=== PATIENT | female | born 1990 | race Caucasian/White ===

== ENCOUNTER 2017-03-27 06:16 | Emergency (ER) | payer OTHER ==
[2017-03-27 07:41] LABS: BASOPHIL 0 % (0-2); EOSINOPHIL 2.5 % (0-5); HCT 41.6 % (37.0-47.0); HGB 14.6 g/dl (12.5-16.0); LYMPHOCYTE 23.3 % (15-48); MCH 31.8 pg (25.0-31.0); MCHC 35.1 g/dL (32.0-36.0); MCV 90.6 fL (78.0-100.0); MONOCYTE 6.3 % (0-12); MPV 11.2 fL (6.0-9.5); NEUTROPHIL 67.9 % (41-80); PLT 201 K/uL (150-400); RBC 4.59 M/uL (4.20-5.40); RDW 12.8 % (11.5-14.0); WBC 8.5 K/uL (4.0-10.5)
[2017-03-27 07:42] LABS: BILIRUBIN NEGATIVE (NEGATIVE); BLOOD NEGATIVE Ery/uL (NEGATIVE); CLARITY CLEAR (CLEAR); COLOR YELLOW (YELLOW); GLUCOSE (U) NORMAL (NORMAL); KETONE (U) NEGATIVE (NEGATIVE); LEUKOCYTES NEGATIVE Leu/uL (NEGATIVE); NITRITE NEGATIVE (NEGATIVE); PROTEIN NEGATIVE (NEGATIVE); SPECIFIC GRAVITY 1.025 (1.001-1.030); UROBILINOGEN 0.2 mg/dL (0.2-1.0)
[2017-03-27 07:58] LABS: CREATININE 0.6 mg/dL (0.5-1.0); POTASSIUM 3.9 mmol/L (3.5-5.1)
== END 2017-03-27 08:58 | disposition home or self-care (01) ==
LOC: FER 06:16
PROVIDERS: Emergency Medicine
DX: J98.01 Acute bronchospasm (principal); M94.0 Chondrocostal junction syndrome [Tietze]; E11.9 Type 2 diabetes mellitus without complications; F17.210 Nicotine dependence, cigarettes, uncomplicated; Z90.49 Acquired absence of other specified parts of digestive tract; Z98.51 Tubal ligation status; Z79.84 Long term (current) use of oral hypoglycemic drugs
CPT/HCPCS: 36415; 71020; 80048; 81003; 85025; 87804; 87899; 94640; J2930

== ENCOUNTER 2020-11-09 04:34 | Emergency (ER) | payer OTHER ==
[~2020-11-09 04:34] MED LIST: BACTRIM DS TAB1 EACH PO; FLOMAX 0.4 MG0.4 MG PO; NORCO 5-325 TA1 EACH PO
[2020-11-09 05:31] LABS: MONOSPOT (MONONUCLEOSIS) NEGATIVE (NEGATIVE)
[2020-11-09] MEDS ORDERED: AMOXICILLIN500 MG PO (05:51)
== END 2020-11-09 06:43 | disposition home or self-care (01) ==
LOC: FER 04:34
PROVIDERS: Emergency Medicine
DX: J02.0 Streptococcal pharyngitis (principal); F17.200 Nicotine dependence, unspecified, uncomplicated; Z20.822 Contact with and (suspected) exposure to COVID-19
CPT/HCPCS: 86308; 87880; 99284; J1885; J8540; U0002

== ENCOUNTER 2021-07-19 21:07 | Emergency (ER) | payer OTHER ==
[~2021-07-19 21:07] MED LIST changes: +AMOXICILLIN500 MG PO
[2021-07-19 21:39] LABS: BASOPHIL 0.3 % (0-2); EOSINOPHIL 1.8 % (0-5); HCT 39.4 % (37.0-47.0); HGB 13.4 g/dl (12.5-16.0); LYMPHOCYTE 22.3 % (15-48); MPV 11.8 fL (6.0-9.5); NEUTROPHIL 68.1 % (41-80); NRBC 0; PLT 183 K/uL (150-400); RBC 4.19 M/uL (4.20-5.40); RDW 13.2 % (11.5-14.0)
[2021-07-19 21:49] LABS: PROTHROMBIN TIME 12.6 SECONDS (11.8-13.4); PTT 27.3 SECONDS (24.4-34.7)
[2021-07-19 22:03] LABS: ALBUMIN 3.6 g/dL (3.4-5.0); BILIRUBIN - TOTAL 0.1 mg/dL (0.2-1.0); BUN/CREAT RATIO (CALC) 19.7 RATIO; CREATININE 0.61 mg/dL (0.51-0.95); GLOBULIN (CALCULATION) 3.2 g/dL; POTASSIUM 3.5 mmol/L (3.5-5.1); TOTAL PROTEIN 6.8 g/dL (6.4-8.2)
[2021-07-19 22:58] LABS: LACTIC ACID 0.9 mmol/L (0.4-1.9)
== END 2021-07-20 02:08 | disposition home or self-care (01) ==
LOC: FER 21:07
PROVIDERS: Emergency Medicine Emergency Medical Services
DX: G89.29 Other chronic pain (principal); R10.9 Unspecified abdominal pain; R07.89 Other chest pain; R06.02 Shortness of breath; R42 Dizziness and giddiness; F17.210 Nicotine dependence, cigarettes, uncomplicated; Z90.49 Acquired absence of other specified parts of digestive tract; Z90.710 Acquired absence of both cervix and uterus; Z79.899 Other long term (current) drug therapy
CPT/HCPCS: 36415; 71045; 71275; 80053; 83605; 83690; 84484; 85025; 85379; 85610; 85730; 87339; 93005; J1885; J2270; J2405; J7030; Q9967

== ENCOUNTER 2021-07-21 21:12 | Emergency (ER) | payer OTHER ==
[2021-07-21 21:41] LABS: BASOPHIL 0.2 % (0-2); EOSINOPHIL 1.2 % (0-5); HCT 39.1 % (37.0-47.0); HGB 13.3 g/dl (12.5-16.0); LYMPHOCYTE 15.2 % (15-48); MCH 31.8 pg (25.0-31.0); MCV 93.5 fL (78.0-100.0); MONOCYTE 4.4 % (0-12); MPV 11.5 fL (6.0-9.5); NEUTROPHIL 78.7 % (41-80); NRBC 0; PLT 189 K/uL (150-400); RBC 4.18 M/uL (4.20-5.40); RDW 12.8 % (11.5-14.0)
[2021-07-21 21:52] LABS: PTT 28.9 SECONDS (24.4-34.7)
[2021-07-21 21:59] LABS: INR 1.02 (0.9-1.2); PROTHROMBIN TIME 12.8 SECONDS (11.8-13.4)
[2021-07-21 22:01] LABS: ALBUMIN 3.8 g/dL (3.4-5.0); BILIRUBIN - TOTAL 0.4 mg/dL (0.2-1.0); CREATININE 0.61 mg/dL (0.51-0.95); GLOBULIN (CALCULATION) 2.6 g/dL; TOTAL PROTEIN 6.4 g/dL (6.4-8.2)
[2021-07-21 23:02] LABS: CORONAVIRUS 2019 SARS-COV-2 NEGATIVE (NEGATIVE); INFLUENZA A NAA NEGATIVE (NEGATIVE)
[2021-07-22] MEDS ORDERED: PRILOSEC20 MG PO (00:34)
== END 2021-07-22 01:22 | disposition home or self-care (01) ==
LOC: FER 21:12
PROVIDERS: Internal Medicine; Nurse Practitioner Family
DX: K21.9 Gastro-esophageal reflux disease without esophagitis (principal); R07.89 Other chest pain; F17.210 Nicotine dependence, cigarettes, uncomplicated; F41.0 Panic disorder [episodic paroxysmal anxiety]; Z20.822 Contact with and (suspected) exposure to COVID-19
CPT/HCPCS: 36415; 71045; 80053; 84484; 85025; 85610; 85730; 93005; J1885; J2060; U0002

== ENCOUNTER 2021-10-09 22:13 | Emergency (ER) | payer OTHER | END 2021-10-10 00:40 | disposition home or self-care (01) | LOC: FER 22:13 | DX: F41.0 Panic disorder [episodic paroxysmal anxiety] (principal) ==

== ENCOUNTER 2022-04-06 02:19 | Emergency (ER) | payer OTHER ==
[~2022-04-06 02:19] MED LIST changes: +PRILOSEC20 MG PO
[2022-04-06 03:29] LABS: CORONAVIRUS 2019 SARS-COV-2 NEGATIVE (NEGATIVE); INFLUENZA A NAA NEGATIVE (NEGATIVE)
[2022-04-06 06:51] LABS: BASOPHIL 0.6 % (0-2); EOSINOPHIL 3.7 % (0-5); HCT 41.9 % (37.0-47.0); HGB 14.1 g/dl (12.5-16.0); LYMPHOCYTE 26.9 % (15-48); MCH 32.3 pg (25.0-31.0); MCHC 33.7 g/dL (32.0-36.0); MCV 95.9 fL (78.0-100.0); MONOCYTE 8.9 % (0-12); MPV 11.8 fL (6.0-9.5); NEUTROPHIL 59.5 % (41-80); NRBC 0; PLT 170 K/uL (150-400); RBC 4.37 M/uL (4.20-5.40); RDW 13.3 % (11.5-14.0)
[2022-04-06 07:02] LABS: ALBUMIN 3.6 g/dL (3.4-5.0); BILIRUBIN - TOTAL 0.1 mg/dL (0.2-1.0); CREATININE 0.63 mg/dL (0.51-0.95); GLOBULIN (CALCULATION) 2.7 g/dL; POTASSIUM 4.3 mmol/L (3.5-5.1); TOTAL PROTEIN 6.3 g/dL (6.4-8.2)
[2022-04-06] MEDS ORDERED: ONDANSETRON ODT4 MG PO ×2 (08:12→08:14)
[2022-04-06] MEDS ORDERED: PHENERGAN25 M1 PO ×2 (08:12→08:14)
[2022-04-06] MEDS ORDERED: PREDNISONE 20MG20 MG PO ×2 (08:12→08:14)
[2022-04-06] MEDS ORDERED: MUCINEX DM ER1 EACH PO ×2 (08:12→08:14)
[2022-04-06] MEDS ORDERED: VIBRAMYCIN100 MG PO ×2 (08:12→08:14)
== END 2022-04-06 09:16 | disposition home or self-care (01) ==
LOC: FER 02:19
PROVIDERS: Internal Medicine
DX: J20.9 Acute bronchitis, unspecified (principal); F17.290 Nicotine dependence, other tobacco product, uncomplicated; Z20.822 Contact with and (suspected) exposure to COVID-19
CPT/HCPCS: 36415; 71045; 80053; 83690; 84145; 85025; J1100; J2405; J7120; U0002